=== PATIENT | female | born 1945 | race Caucasian/White ===

== ENCOUNTER 2022-09-21 08:00 | Outpatient (RCR) | payer MEDICARE, SELFPAY ==
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
[2022-08-30 12:04] VITALS: BP 140/64; PULSE 76; TEMP 37.3
[2022-08-30 12:10] VITALS: BMI 22.8
--- NOTE | 2022-08-30 13:10 | PC.ADMIT ---
Patient is a 76 year old female who lives along in an apartment complex. She was referred to [facility] by the inpatient behavioral health unit at [facility] where she was admitted reportedly d/t increased depression with SI thoughts to overdose or thinking about guns(which she does not have access to). Patient reportedly made a suicidal gesture with a knife and intent to harm herself. She called 911 for help. Patient reports feeling overwhelmed with a woman in her building who screams a lot and this is triggering to her. Patient also identified needing a space in her apartment to do puzzles which is calming to her. She also wants to have the ability of having others over to her home to do a puzzle with. Stated she needs to clean off one of her tables to do this. Educated patient about the process of organizing a space in her apartment and how to reduce clutter. Patient is alert and oriented x4. Calm and cooperative. Presented with depressed mood and affect. Denied SI or thoughts to harm herself. Patient given a copy of her safety plan if needed. Medications reconcileed with patient and [facility] paperwork. Patient reports taking medications as prescribed.
[2022-08-30 13:35] VITALS: BP 124/60
--- NOTE | 2022-08-31 14:17 | HO.PHP ---
I met with michael client fro over 30 minutes after she left group because she was feeling overwhelmed filling out the worksheet. She was able to process her feelings and spoke about her history of worrying and not feeling good enough . She spoke of the skills she knows and I requested that she demonstrate some of the techniques, which she did. By the end of our meeting she reported feeling less anxious and did appear calmer
--- NOTE | 2022-09-01 15:02 | HO.PHP ---
The clients case was reviewed and opened in treatment team
--- NOTE | 2022-09-05 10:00 | P.PNPSP_ITS ---
Subjective Subjective Date of Service: 09/05/22 Reason For Visit: anxiety,MDD,PTSD Medical Problems Affecting Mental Status: No Interim History: No SI, no safety concerns. Reports decreased need for prn lorazepam for anziety. Sleep improved, taking bedtime closer to bedtime rather than earlier in evening. Has been working with community support people to declutter living space. Plans to go tour [place] [facility] with her brother. Medication Compliance: Yes Side effects from medications: No Attending Groups: Yes Review of Systems Acute medical concerns: No Medical Review of Systems: unchanged Review of Systems Review of Systems Yes all other systems are reviewed and are negative Constitutional: Reports no additional constitutional complaints Mental Status Exam Mental Status Exam Narrative: Well-developed, well-nourished female, NAD. Patient Appearance: Appropriate Patient Orientation: Person, Place, Time and Situation Level of Consciousness: Appropriate Patient Behavior: Appropriate, Cooperative, Anxious and Good Eye Contact Mood Description: Calm and Nervous Affect Description: Anxious Patient Cognition Impaired: No Ability to Follow Directions: Good Speech Pattern: Clear, Perseverating and Excessive Memory Description: Intact Hallucinations: None Delusions: Not Present Thought Process: Intact Thought Content: positive for Circumstantial and positive for Perseveration Depressive Symptoms: Increased Anxiety, Difficulty Sleeping, Loss of Int. in Activity, Feelings of Guilt and Low Self Esteem Abnormal Motor Activity Signs and Symptoms: Tremors (bilat extremities fine tremor noted) Judgement: Fair Diagnostics Vital Signs (24Hr): BMI result Body Mass Index 22.8 Assessment & Plan Assessment & Plan (1) Major depressive disorder, recurrent severe without psychotic features: Status: Acute Code(s): F33.2 - Major depressive disorder, recurrent severe without psychotic features Assessment and Plan: Pt continues with anxious mood and affect, overall less anxious and less depressed, No SI , states that she feels safe. Continues with perseveration, focused on possibility of moving to an assisted living facility. (2) Generalized anxiety disorder: Status: Acute Code(s): F41.1 - Generalized anxiety disorder Assessment and Plan: Pt has been taking increased dose of buspar since hospitalization , increased d ose appears to be effective , pt reports needing less dose of PRN ativan Plan 1. Continue with current [facility] plan of care 2. Continue with current meds as prescribed 3. Follow up as per protocol Patient educated on: diagnosis, medication risk/benefits and therapeutic strategies Informed Consent: understands Reason for contiued partial hosp. stay Substantial Risk for: inability to function and rapid decompensation Certification I certify that partial hospital treatment is medically necessary due to the symptoms and problems resulting from the patient's mental illness and the failure to treat the patient at the partial hospital level of care would likely result in the patient requiring inpatient psychiatric care which could not be prevented at a less intensive level of care. Total time managing care of this patient today _20___ minutes. Discharge Plan Discharge Attending provider: Mani Mcdaniel Medications: No Action quetiapine 25 mg tablet 25 mg PO BEDTIME famotidine 40 mg tablet 1 tab PO DAILY PRN (Reason: Acid Reflux) alendronate 70 mg tablet 1 tab PO QWEEK Label Comments: Patient stated she takes weekly on Sundays. acetaminophen 650 mg Tablet 650 mg PO Q6H PRN (Reason: Pain) bupropion HCl 100 mg Tablet Sustained-Release 12 Hr 100 mg PO DAILY levothyroxine [Synthroid] 100 mcg tablet 1 tab PO DAILY lorazepam 0.5 mg tablet 0.25 mg PO BID PRN (Reason: Anxiety) Rx Instructions: Take 1/2 tab two times a day as needed for anxiety. buspirone 30 mg tablet 1 tab PO BID fluticasone propionate [Flovent HFA] 44 mcg/actuation HFA aerosol inhaler 1 puff inhalation DAILY folic acid 1 mg tablet 1 tab PO QAM gabapentin 100 mg capsule 200 mg PO DAILY albuterol sulfate [Ventolin HFA] 90 mcg/actuation Hfa Aerosol Inhaler 2 puff INHALATION Q4H PRN (Reason: Shortness Of Breath) fluoxetine 20 mg capsule 1 cap PO QAM cholecalciferol (vitamin D3) [Vitamin D3] 25 mcg (1,000 unit) Capsule 25 mcg PO DAILY psyllium 3.4 gram/5.8 gram Powder See Rx Instructions .ROUTE .COMPLEX Rx Instructions: Take 1 packet po daily. omega 1-rqq-ufq-fish oil 1,000 mg (120 mg-180 mg) Capsule 1 cap PO DAILY
--- NOTE | 2022-09-14 14:39 | HO.PHP ---
I left a message with the clients therapist informing her that Buffy will be discharged on Monday. I questioned if increasing therapy to twice a week is an option as there is not many options for aftercare.
--- NOTE | 2022-09-16 13:28 | HO.PHPPROGNO ---
Subjective Subjective Date of Service: 09/16/22 Reason For Visit: anxiety,MDD,PTSD Medical Problems Affecting Mental Status: No Interim History: Less depressed, continues with anxiety. Using prn's for anxiety, finding helpful. Sleep improving, concentration, motivation improved. States she feels she is starting to make progress. Considering moving into skilled nursing community. Medication Compliance: Yes Side effects from medications: Yes Attending Groups: Yes Review of Systems Acute medical concerns: No Medical Review of Systems: unchanged Review of Systems Review of Systems Yes all other systems are reviewed and are negative Constitutional: Reports no additional constitutional complaints Mental Status Exam Mental Status Exam Narrative: Well-developed, well-nourished female, NAD. Patient Appearance: Appropriate Patient Orientation: Person, Place, Time and Situation Level of Consciousness: Appropriate Patient Behavior: Appropriate, Cooperative and Good Eye Contact Mood Description: Calm Affect Description: Appropriate Patient Cognition Impaired: No Ability to Follow Directions: Excellent Speech Pattern: Clear and Excessive Memory Description: Intact Hallucinations: None Delusions: Not Present Thought Process: Intact Thought Content: positive for Intact and positive for Circumstantial Depressive Symptoms: Increased Anxiety and Low Self Esteem Judgement: Fair Diagnostics Vital Signs (24Hr): BMI result Body Mass Index 22.8 Assessment & Plan Assessment & Plan (1) Major depressive disorder, recurrent severe without psychotic features: Status: Acute Code(s): F33.2 - Major depressive disorder, recurrent severe without psychotic features Assessment and Plan: Patient less depressed, less anxious. Appropriate mood and affect. No SI, no safety concerns. Feels she has made progress in the program, continues to ?moving right direction ?. Finding groups helpful. Current medication regimen working well. (2) Generalized anxiety disorder: Status: Acute Code(s): F41.1 - Generalized anxiety disorder Plan 1. Continue with current [facility] plan of care. 2. Continue with medications as prescribed by outpatient provider. 3. Follow-up as per protocol. Patient educated on: diagnosis, medication risk/benefits and therapeutic strategies Informed Consent: understands Reason for contiued partial hosp. stay Substantial Risk for: inability to function and rapid decompensation Certification I certify that partial hospital treatment is medically necessary due to the symptoms and problems resulting from the patient's mental illness and the failure to treat the patient at the partial hospital level of care would likely result in the patient requiring inpatient psychiatric care which could not be prevented at a less intensive level of care. Total time managing care of this patient today __20__ minutes. Discharge Plan Discharge Attending provider: Mani Mcdaniel Medications: No Action quetiapine 25 mg tablet 25 mg PO BEDTIME famotidine 40 mg tablet 1 tab PO DAILY PRN (Reason: Acid Reflux) alendronate 70 mg tablet 1 tab PO QWEEK Label Comments: Patient stated she takes weekly on Sundays. acetaminophen 650 mg Tablet 650 mg PO Q6H PRN (Reason: Pain) bupropion HCl 100 mg Tablet Sustained-Release 12 Hr 100 mg PO DAILY levothyroxine [Synthroid] 100 mcg tablet 1 tab PO DAILY lorazepam 0.5 mg tablet 0.25 mg PO BID PRN (Reason: Anxiety) Rx Instructions: Take 1/2 tab two times a day as needed for anxiety. buspirone 30 mg tablet 1 tab PO BID fluticasone propionate [Flovent HFA] 44 mcg/actuation HFA aerosol inhaler 1 puff inhalation DAILY folic acid 1 mg tablet 1 tab PO QAM gabapentin 100 mg capsule 200 mg PO DAILY albuterol sulfate [Ventolin HFA] 90 mcg/actuation Hfa Aerosol Inhaler 2 puff INHALATION Q4H PRN (Reason: Shortness Of Breath) fluoxetine 20 mg capsule 1 cap PO QAM cholecalciferol (vitamin D3) [Vitamin D3] 25 mcg (1,000 unit) Capsule 25 mcg PO DAILY psyllium 3.4 gram/5.8 gram Powder See Rx Instructions .ROUTE .COMPLEX Rx Instructions: Take 1 packet po daily. omega 4-att-yzl-fish oil 1,000 mg (120 mg-180 mg) Capsule 1 cap PO DAILY Stand Alone Forms: Patient Portal Discharge page Patient Education: Depression (DC), Anxiety (GEN)
--- NOTE | 2022-09-20 13:16 | HO.PHP ---
The client called out because she has an appointment today regarding her move
--- NOTE | 2022-09-21 14:18 | HO.PHPPROGNO ---
Subjective Subjective Date of Service: 09/21/22 Reason For Visit: anxiety,MDD,PTSD Medical Problems Affecting Mental Status: No Interim History: Describes mood as ?feeling good ?. No SI, no safety concerns. Feels she has made progress in partial. Home is more organized, less cluttered. Feels ready to discharge from program at this time. Medication Compliance: Yes Side effects from medications: No Attending Groups: Yes Review of Systems Acute medical concerns: No Medical Review of Systems: unchanged Review of Systems Review of Systems Yes all other systems are reviewed and are negative Constitutional: Reports no additional constitutional complaints Mental Status Exam Mental Status Exam Narrative: Well-developed, well-nourished female, NAD. Patient Appearance: Appropriate Patient Orientation: Person, Place, Time and Situation Level of Consciousness: Appropriate Patient Behavior: Appropriate, Cooperative and Good Eye Contact Mood Description: Calm and Happy Affect Description: Appropriate Patient Cognition Impaired: No Ability to Follow Directions: Excellent Speech Pattern: Clear Memory Description: Intact Hallucinations: None Delusions: Not Present Thought Process: Intact Thought Content: positive for Intact Judgement: Good Diagnostics Vital Signs (24Hr): BMI result Body Mass Index 22.8 Assessment & Plan Assessment & Plan (1) Major depressive disorder, recurrent severe without psychotic features: Status: Acute Code(s): F33.2 - Major depressive disorder, recurrent severe without psychotic features Assessment and Plan: Describes mood as ?feeling good ?. Reports much improvement, much less anxious, does not feel depressed. No SI, no safety concerns. Feels safe at this time. Feels she has made progress in partial. Feels that she has been able to work on her issues with success. Home is more organized, less cluttered. Completed a puzzle she had on her table last evening. Had worked to de clutter when starting program, with table being 1st project. Feels that this was successful. Feels ready to discharge from program at this time. No concerns. Satisfied with current medications as prescribed by outpatient provider. (2) Generalized anxiety disorder: Status: Acute Code(s): F41.1 - Generalized anxiety disorder Plan 1. Patient appears stable for discharge from [facility] at this time. 2. Patient to follow-up with outpatient providers going forward. Patient educated on: diagnosis, medication risk/benefits and therapeutic strategies Informed Consent: understands Reason for contiued partial hosp. stay Substantial Risk for: stable for discharge Certification I certify that partial hospital treatment is medically necessary due to the symptoms and problems resulting from the patient's mental illness and the failure to treat the patient at the partial hospital level of care would likely result in the patient requiring inpatient psychiatric care which could not be prevented at a less intensive level of care. Total time managing care of this patient today ___20_ minutes. Discharge Plan Discharge Attending provider: Mani Mcdaniel Medications: No Action quetiapine 25 mg tablet 25 mg PO BEDTIME famotidine 40 mg tablet 1 tab PO DAILY PRN (Reason: Acid Reflux) alendronate 70 mg tablet 1 tab PO QWEEK Label Comments: Patient stated she takes weekly on Sundays. acetaminophen 650 mg Tablet 650 mg PO Q6H PRN (Reason: Pain) bupropion HCl 100 mg Tablet Sustained-Release 12 Hr 100 mg PO DAILY levothyroxine [Synthroid] 100 mcg tablet 1 tab PO DAILY lorazepam 0.5 mg tablet 0.25 mg PO BID PRN (Reason: Anxiety) Rx Instructions: Take 1/2 tab two times a day as needed for anxiety. buspirone 30 mg tablet 1 tab PO BID fluticasone propionate [Flovent HFA] 44 mcg/actuation HFA aerosol inhaler 1 puff inhalation DAILY folic acid 1 mg tablet 1 tab PO QAM gabapentin 100 mg capsule 200 mg PO DAILY albuterol sulfate [Ventolin HFA] 90 mcg/actuation Hfa Aerosol Inhaler 2 puff INHALATION Q4H PRN (Reason: Shortness Of Breath) fluoxetine 20 mg capsule 1 cap PO QAM cholecalciferol (vitamin D3) [Vitamin D3] 25 mcg (1,000 unit) Capsule 25 mcg PO DAILY psyllium 3.4 gram/5.8 gram Powder See Rx Instructions .ROUTE .COMPLEX Rx Instructions: Take 1 packet po daily. omega 0-fuj-bzn-fish oil 1,000 mg (120 mg-180 mg) Capsule 1 cap PO DAILY Stand Alone Forms: Patient Portal Discharge page Patient Education: Depression (DC), Anxiety (GEN)
--- NOTE | 2022-09-22 08:37 | HO.PHP ---
I left a message with the clients therapist re clients discharge from the program and I faxed the dc summary
== END 2022-09-21 23:59 | disposition home or self-care (01) ==
LOC: HO.PHPA 08:00
PROVIDERS: Visit Provider Psychiatry & Neurology Psychiatry
DX: F33.2 Major depressive disorder, recurrent severe without psychotic features (principal); F41.1 Generalized anxiety disorder; Z79.899 Other long term (current) drug therapy
CPT/HCPCS: 90791; 90853

== ENCOUNTER → 2023-07-28 08:15 | Outpatient (BNV) | payer MEDICARE, SELFPAY | PROVIDERS: Visit Provider Psychiatry & Neurology Psychiatry | DX: F33.2 Major depressive disorder, recurrent severe without psychotic features (principal); F41.1 Generalized anxiety disorder; F06.8 Other specified mental disorders due to known physiological condition; S06.9X0S Unspecified intracranial injury without loss of consciousness, sequela | CPT/HCPCS: 90792; 99213 ==

== ENCOUNTER 2023-08-01 08:45 | Outpatient (RCR) | payer MEDICARE, SELFPAY ==
[2023-07-17 16:21] VITALS: BP 130/76; PULSE 70; RESP 12; TEMP 36.9
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
--- NOTE | 2023-07-20 16:19 | HO.PHP ---
Client's case has been opened and reviewed in treatment team.
--- NOTE | 2023-07-28 12:44 | HO.PHPPROGNO ---
Subjective Subjective Date of Service: 07/28/23 Reason For Visit: anxiety,MDD,PTSD Interim History: Patient seen for follow-up today. No acute issues or concerns. Patient reports I'm meeting my goals . She has been able to talk to her brother, figuring out some situations about where she will end up living. She anticipates a lot of changes in the coming year. SHe has been weighing out different living situations including assisted living and congregate living . She talked about [facility] which has 39 residents she says. She says she lived in congregate living situation (sharing an apartment with other residents and staff) back in 2002. She found this very helpful. She has no complaints, she reports mood is stable. She reports the TBI affects her decision-making but has been systematically working through current problems. She finds groups helpful is talking out problems. She denies any hopelessness or SI. Sleep, energy, appetite are stable. She has her next psych appointment with outpatient provider Chelsea Zhang on August 03 at 8am. She sees her PCP in 3 weeks. She has been medication compliant, denies any adverse effects. Mental Status Exam Mental Status Exam Narrative: Alert, oriented, in no acute distress. Groomed. Normal gait, no tics, tremors, dyskinesia, no psychomotor agitation or neurovegetative retardation. Calm, cooperative, anxious. Intermittent eye contact. Mood less anxious. Affect variable, no lability. Speech is normal rate, volume, prosody. Thought process is scattered but coherent, without illogicality or FOI/ORALIA. Thought content is future-oriented, relevant to stressors, No thoughts of harming self or others. Cognition with remote and scattered memory impairment.. Sensorium clear. Insight fair. Judgment fair but adequate. Assessment & Plan Assessment & Plan (1) Major depressive disorder, recurrent severe without psychotic features: Status: Acute Code(s): F33.2 - Major depressive disorder, recurrent severe without psychotic features (2) Generalized anxiety disorder: Status: Acute Code(s): F41.1 - Generalized anxiety disorder (3) Cognitive deficit as late effect of traumatic brain injury: Status: Acute Code(s): F06.8 - Other specified mental disorders due to known physiological condition; S06.9X0S - Unspecified intracranial injury without loss of consciousness, sequela Plan continue treatment continue to monitor as per protocol Patient educated on: diagnosis and medication risk/benefits Informed Consent: understands Reason for contiued partial hosp. stay Substantial Risk for: inability to function and med/psych decompensation Certification I certify that partial hospital treatment is medically necessary due to the symptoms and problems resulting from the patient's mental illness and the failure to treat the patient at the partial hospital level of care would likely result in the patient requiring inpatient psychiatric care which could not be prevented at a less intensive level of care. Total time managing care of this patient today ___30_ minutes. Discharge Plan Discharge Attending provider: Kym Marks Medications: Continued quetiapine 25 mg tablet 12.5 mg PO BEDTIME famotidine 40 mg tablet 1 tab PO DAILY PRN (Reason: Acid Reflux) alendronate 70 mg tablet 1 tab PO QWEEK acetaminophen 650 mg Tablet 650 mg PO Q6H PRN (Reason: Pain) bupropion HCl 100 mg Tablet Sustained-Release 12 Hr 100 mg PO DAILY levothyroxine [Synthroid] 100 mcg tablet 1 tab PO DAILY lorazepam 0.5 mg tablet 0.25 mg PO 1XD PRN (Reason: Anxiety) buspirone 30 mg tablet 1 tab PO BID fluticasone propionate [Flovent HFA] 44 mcg/actuation HFA aerosol inhaler 1 puff inhalation DAILY folic acid 1 mg tablet 1 tab PO QAM gabapentin 100 mg capsule 200 mg PO DAILY albuterol sulfate [Ventolin HFA] 90 mcg/actuation Hfa Aerosol Inhaler 2 puff INHALATION Q4H PRN (Reason: Shortness Of Breath) fluoxetine 20 mg capsule 2 cap PO QAM cholecalciferol (vitamin D3) [Vitamin D3] 25 mcg (1,000 unit) Capsule 25 mcg PO DAILY omega 8-mhz-nmu-fish oil 1,000 mg (120 mg-180 mg) Capsule 1 cap PO DAILY No Action psyllium 3.4 gram/5.8 gram Powder See Rx Instructions .ROUTE .COMPLEX Rx Instructions: PRN Stand Alone Forms: Patient Portal Discharge page Patient Education: Depression (DC)
--- NOTE | 2023-08-01 20:27 | HO.PHPPROGNO ---
Subjective Subjective Date of Service: 08/01/23 Reason For Visit: anxiety,MDD,PTSD Interim History: Patient seen for follow-up today. Patient reports I'm good . Enjoyed her holiday to cousin's house and spent time with family. She did not visit last Holiday season because of suspiciouness and says she regrets having felt that way and is glad she was able to visit this year and reconnect. SHe reports things with her brother have improved. She has her name on some waitlists and decided she will start filling out the application for assisted living today after the program. Her brother continues to be her primary support. Mood is definitely better , she denies any hopelessness or SI. Sleep and appetite are stable. Anxiety is much lower, and when she does experience some she is better at talking herself through it. She has a week left of her medicaitons. SHe says she will be meeting up with her provider on (in 2 days) and can get refills at that time. Mental Status Exam Mental Status Exam Narrative: Alert, oriented, in no acute distress. Groomed. Normal gait, no tics, tremors, dyskinesia, no psychomotor agitation or neurovegetative retardation. Calm, cooperative, anxious. Intermittent eye contact. Mood euthymic. Affect variable, no lability. Speech is normal rate, volume, prosody. Thought process is scattered but coherent, without illogicality or FOI/ORALIA. Thought content is future-oriented, relevant to stressors, No thoughts of harming self or others. Cognition with remote and scattered memory impairment.. Sensorium clear. Insight fair. Judgment fair but adequate. Assessment & Plan Assessment & Plan (1) Major depressive disorder, recurrent severe without psychotic features: Status: Acute Code(s): F33.2 - Major depressive disorder, recurrent severe without psychotic features (2) Generalized anxiety disorder: Status: Acute Code(s): F41.1 - Generalized anxiety disorder (3) Cognitive deficit as late effect of traumatic brain injury: Status: Acute Code(s): F06.8 - Other specified mental disorders due to known physiological condition; S06.9X0S - Unspecified intracranial injury without loss of consciousness, sequela Plan [facility]charge from [facility] continue regular medications Will defer to outpatient provider for continued medication management Patient educated on: diagnosis and medication risk/benefits Informed Consent: understands Reason for contiued partial hosp. stay Substantial Risk for: stable for discharge Certification I certify that partial hospital treatment is medically necessary due to the symptoms and problems resulting from the patient's mental illness and the failure to treat the patient at the partial hospital level of care would likely result in the patient requiring inpatient psychiatric care which could not be prevented at a less intensive level of care. Total time managing care of this patient today __30__ minutes. Discharge Plan Discharge Attending provider: Kym Marks Medications: Continued quetiapine 25 mg tablet 12.5 mg PO BEDTIME famotidine 40 mg tablet 1 tab PO DAILY PRN (Reason: Acid Reflux) alendronate 70 mg tablet 1 tab PO QWEEK acetaminophen 650 mg Tablet 650 mg PO Q6H PRN (Reason: Pain) bupropion HCl 100 mg Tablet Sustained-Release 12 Hr 100 mg PO DAILY levothyroxine [Synthroid] 100 mcg tablet 1 tab PO DAILY lorazepam 0.5 mg tablet 0.25 mg PO 1XD PRN (Reason: Anxiety) buspirone 30 mg tablet 1 tab PO BID fluticasone propionate [Flovent HFA] 44 mcg/actuation HFA aerosol inhaler 1 puff inhalation DAILY folic acid 1 mg tablet 1 tab PO QAM gabapentin 100 mg capsule 200 mg PO DAILY albuterol sulfate [Ventolin HFA] 90 mcg/actuation Hfa Aerosol Inhaler 2 puff INHALATION Q4H PRN (Reason: Shortness Of Breath) fluoxetine 20 mg capsule 2 cap PO QAM cholecalciferol (vitamin D3) [Vitamin D3] 25 mcg (1,000 unit) Capsule 25 mcg PO DAILY omega 2-hoi-vrs-fish oil 1,000 mg (120 mg-180 mg) Capsule 1 cap PO DAILY No Action psyllium 3.4 gram/5.8 gram Powder See Rx Instructions .ROUTE .COMPLEX Rx Instructions: PRN Stand Alone Forms: Patient Portal Discharge page Patient Education: Depression (DC) Telehealth Telehealth Location of provider rendering services: other (private office) Location of patient: other ([facility]) Patient Identification confirmed using: Name, : Yes Telehealth method: video Minutes spent on Phone/Video with Pt.: 30
== END 2023-08-02 23:59 | disposition home or self-care (01) ==
LOC: HO.PHPA 08:45
PROVIDERS: Visit Provider Psychiatry & Neurology Psychiatry
DX: F33.2 Major depressive disorder, recurrent severe without psychotic features (principal); F41.1 Generalized anxiety disorder; F06.8 Other specified mental disorders due to known physiological condition; S06.9X0S Unspecified intracranial injury without loss of consciousness, sequela; Z79.899 Other long term (current) drug therapy
CPT/HCPCS: 90791; 90853